=== PATIENT | male | born 1950 | race Caucasian/White ===

== ENCOUNTER 2021-02-17 14:05 | Outpatient (CLI) | payer OTHER, SELFPAY | END 2021-02-17 14:06 | disposition home or self-care (01) | LOC: WOUND 14:09 | PROVIDERS: Visit Provider Thoracic Surgery (Cardiothoracic Vascular Surgery) | DX: E11.621 Type 2 diabetes mellitus with foot ulcer (principal); L97.523 Non-pressure chronic ulcer of other part of left foot with necrosis of muscle | CPT/HCPCS: 11043; 87070; 87075; 87205; G0463 ==

== ENCOUNTER 2021-02-17 15:28 | Outpatient (CLI) | payer OTHER, MEDICARE, MEDICAID, SELFPAY ==
--- NOTE | 2021-02-17 | USCV_ITS ---
Keny Armendariz Age: 71 Gender: M : 1950 Exam Date: 02/17/2021 15:54 Ordering Phys: Brian Ayala MD (Andy) ([email or web address] [email or web address]) Technologist: Violette Mccarty [place] [facility] [place]OT ULCER, DVT HISTORY: Lower extremity swelling. PROCEDURES: Venous duplex imaging was performed in only the left lower extremity. The following venous structures were evaluated: common femoral vein, profunda vein, proximal portion of the greater saphenous vein, superficial femoral vein, and the popliteal vein. In addition, the posterior tibial and peroneal trunk were evaluated. FINDINGS: Normal 2-D Doppler and augmentation and compressibility throughout the lower extremity venous structures. Additional imaging through the proximal calf veins also reveals no thrombus. Limited evaluation of the greater saphenous vein is patent with no thrombus.. CONCLUSIONS No evidence of left lower extremity DVT. Everardo Macias MD (Electronically Signed) Final Date: 17 Feb 2021 17:51 S
== END 2021-02-17 15:29 | disposition home or self-care (01) ==
PROVIDERS: PCP Family Medicine; Visit Provider Thoracic Surgery (Cardiothoracic Vascular Surgery)
DX: E11.621 Type 2 diabetes mellitus with foot ulcer (principal)
CPT/HCPCS: 93971

== ENCOUNTER 2021-02-24 14:09 | Outpatient (CLI) | payer OTHER, MEDICARE, MEDICAID, SELFPAY | END 2021-02-24 14:10 | disposition home or self-care (01) | LOC: WOUND 14:10 | PROVIDERS: PCP Family Medicine; Visit Provider Thoracic Surgery (Cardiothoracic Vascular Surgery) | DX: E11.621 Type 2 diabetes mellitus with foot ulcer (principal); L97.525 Non-pressure chronic ulcer of other part of left foot with muscle involvement without evidence of necrosis | CPT/HCPCS: 11042 ==

== ENCOUNTER 2021-03-01 08:37 | Outpatient (CLI) | payer OTHER, MEDICARE, SELFPAY ==
--- NOTE | 2021-03-01 08:45 | MR_ITS ---
WS: [id number] MRI LEFT FOOT with and without CONTRAST. COMPARISON: LEFT toe 02/17/2016 Multiplanar, multisequence imaging is performed with and without contrast. Status post amputation of nearly 70% of the second toe. Mild tapering of the remaining proximal secon d phalanx. There is no enhancement at the surgical site. There is abnormal signal involving a large portion of the first toe. On the T1 sequences there is low signal at the IP joint and adjacent phalanges. There is narrowing of the IP joint and there is enhan cement on both sides of the first IP joint. There is also small amount of enhancement within the prox imal first phalanx. Focal soft tissue ulceration along the plantar surface of the first toe near the IP joint. Soft tissue ulceration with peripheral enhancement measures 10 x 11 mm and does abut the pl daja surface of the first toe. There is enhancement within the first toe just deep to the ulceration . There is very slight enhancement within the first metatarsal head which may be degenerative and due t o acute inflammatory reaction from arthropathy. MR/MR foot LT wo/w con [id number] IMPRESSION: 1. Soft tissue ulceration measuring 10 x 11 mm involving the plantar surface f irst toe at the IP joint. 2. Deep to the soft tissue ulceration there is osteomyelitis involving the pro ximal and distal phalanges at the first IP joint. 3. Mild enhancement within the first metatarsal head may be post inflammatory arthritis. 4. Mild cellulitis surrounding the first toe. 5. Prior amputation 70% of the second toe with no recurrent osteomyelitis.
[2021-03-01 09:28] LABS: Basophils % 0.4 %; Eosinophils # 0.2 10^3/uL (0.0-0.8); Eosinophils % 2.9 %; Hematocrit 45.5 % (42.0-52.0); Hemoglobin 14.8 g/dL (11.7-16.6); Lymphocytes # 1.6 10^3/uL (0.8-4.8); Lymphocytes % 19.6 %; Mean Corpuscular HGB Conc 32.5 g/dL (30.0-36.0); Mean Corpuscular Volume 86.2 fL (80-94); Mean Platelet Volume 9.9 fL (7.4-10.4); Monocytes # 0.6 10^3/uL (0.2-0.9); Monocytes % 7.7 %; Neutrophils # 5.66 10^3/uL (1.8-7.7); Neutrophils % 69.2 %; Nucleated Red Blood Cells % 0 %; Platelet Count 253 10^3/cmm (130-400); Red Blood Count 5.28 10^6/uL (4.1-5.3); Red Cell Distribution Width 12.1 % (12.1-15.1); White Blood Count 8.2 10^3/uL (4.0-10.0)
[2021-03-01 10:00] LABS: Anion Gap 15.1 (5-19); Blood Urea Nitrogen 15 mg/dL (8-23); Calcium 8.9 mg/dL (8.5-10.5); Carbon Dioxide 28 mmol/L (22-29); Chloride 97 mmol/L (98-107); Glucose 299 mg/dL (65-115); Osmolality Calculated 294 mOsm/kg (285-295); Potassium 4.1 mmol/L (3.5-5.1); Sodium 136 mmol/L (136-145)
[2021-03-01] MEDS: gadobenate dimeglumine 20 mL vial IV (10:17)
== END 2021-03-01 08:38 | disposition home or self-care (01) ==
PROVIDERS: PCP Family Medicine; Visit Provider Thoracic Surgery (Cardiothoracic Vascular Surgery)
DX: E11.621 Type 2 diabetes mellitus with foot ulcer (principal); L97.528 Non-pressure chronic ulcer of other part of left foot with other specified severity; M86.8X7 Other osteomyelitis, ankle and foot; L03.032 Cellulitis of left toe; Z89.422 Acquired absence of other left toe(s)
CPT/HCPCS: 73720; 80048; 85025; A9577

== ENCOUNTER 2021-03-03 14:39 | Outpatient (CLI) | payer OTHER, MEDICARE, SELFPAY | END 2021-03-03 14:40 | disposition home or self-care (01) | LOC: WOUND 14:40 | PROVIDERS: PCP Family Medicine; Visit Provider Thoracic Surgery (Cardiothoracic Vascular Surgery) | DX: E11.621 Type 2 diabetes mellitus with foot ulcer (principal); L97.523 Non-pressure chronic ulcer of other part of left foot with necrosis of muscle | CPT/HCPCS: 11043 ==

== ENCOUNTER 2021-03-09 08:50 | Outpatient (CLI) | payer OTHER, SELFPAY | END 2021-03-09 08:51 | disposition home or self-care (01) | LOC: SPT 08:51 | PROVIDERS: PCP Family Medicine; Visit Provider Podiatrist Foot & Ankle Surgery | DX: Z46.89 Encounter for fitting and adjustment of other specified devices (principal); E11.621 Type 2 diabetes mellitus with foot ulcer; L97.529 Non-pressure chronic ulcer of other part of left foot with unspecified severity | CPT/HCPCS: 97760; L4361 ==

== ENCOUNTER 2021-03-10 08:28 | Outpatient (CLI) | payer OTHER, SELFPAY ==
--- NOTE | 2021-03-10 11:06 | XR_ITS ---
WS: [id number] Exam: XR chest 2V* [id number] Date/Time of Exam: 03/10/2021 11:25 AM Reason For Exam: SCREENING FOR RESPIRATORY Comparison 06/20/2013. The lungs are hyperinflated and clear. Normal cardiomediastinal structures and regional bony elements . No pleural effusions. Spondylosis of the thoracic and upper lumbar spine. XR/XR chest 2V* [id number] IMPRESSION: 1. No acute cardiopulmonary finding. 2. Pulmonary hyperinflation which might indicate obstructive lung disease.
[2021-03-10 11:40] LABS: Basophils # 0.1 10^3/uL (0.0-0.1); Basophils % 0.7 %; Eosinophils # 0.4 10^3/uL (0.0-0.8); Eosinophils % 4.3 %; Hematocrit 44.9 % (42.0-52.0); Hemoglobin 14.8 g/dL (11.7-16.6); Lymphocytes # 2.2 10^3/uL (0.8-4.8); Lymphocytes % 25.3 %; Mean Corpuscular Hemoglobin 27.8 pg (28.0-34.0); Mean Corpuscular Volume 84.4 fL (80-94); Mean Platelet Volume 8.9 fL (7.4-10.4); Monocytes # 0.8 10^3/uL (0.2-0.9); Monocytes % 9.7 %; Neutrophils # 5.18 10^3/uL (1.8-7.7); Neutrophils % 59.5 %; Nucleated Red Blood Cells % 0 %; Platelet Count 211 10^3/cmm (130-400); Red Blood Count 5.32 10^6/uL (4.1-5.3); Red Cell Distribution Width 12.5 % (12.1-15.1); White Blood Count 8.7 10^3/uL (4.0-10.0)
[2021-03-10 11:55] LABS: Alanine Aminotransferase 16 U/L (0-41); Albumin Level 3.9 g/dL (3.5-5.2); Alkaline Phosphatase 117 IU/L (40-130); Anion Gap 14.1 (5-19); Aspartate Amino Transferase 13 U/L (0-40); Blood Urea Nitrogen 15 mg/dL (8-23); C Reactive Protein 8.1 mg/L (0.0-4.9); Calcium 9.3 mg/dL (8.5-10.5); Carbon Dioxide 26 mmol/L (22-29); Chloride 97 mmol/L (98-107); Globulin 3.6 g/dL (1.3-4.6); Glucose 212 mg/dL (65-115); Osmolality Calculated 283 mOsm/kg (285-295); Potassium 4.1 mmol/L (3.5-5.1); Sodium 133 mmol/L (136-145); Total Bilirubin 0.2 mg/dL (0.15-1.2); Total Protein 7.5 g/dL (6.6-8.7)
[2021-03-10 11:57] LABS: Prealbumin 20.8 mg/dL (20-40)
[2021-03-10 12:06] LABS: Alcohol Level < 10 mg/dL (0-10)
[2021-03-10 12:32] LABS: Erythrocyte Sedimentation Rate 44 mm/hr (0-10)
== END 2021-03-10 08:29 | disposition home or self-care (01) ==
PROVIDERS: PCP Family Medicine; Visit Provider Nurse Practitioner Family
DX: E11.621 Type 2 diabetes mellitus with foot ulcer (principal); L97.522 Non-pressure chronic ulcer of other part of left foot with fat layer exposed; Z13.83 Encounter for screening for respiratory disorder NEC
CPT/HCPCS: 11042; 36415; 71046; 80053; 80307; 84134; 85025; 85651; 86140

== ENCOUNTER 2021-03-10 10:55 | Outpatient (CLI) | payer OTHER, SELFPAY ==
--- NOTE | 2021-03-10 11:13 | ECG_ITS ---
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 Measurements Intervals Colbert Rate: 93 P: 75 AZ: 170 QRS: 20 QRSD: 93 T: 57 QT: 341 QTc: 425 Interpretive Statements SINUS RHYTHM No previous ECG available for comparison Electronically Signed On 03-10-2021 18:33:18 CDT by Yanelis Pandey M.D. [id number]
== END 2021-03-10 10:56 | disposition home or self-care (01) ==
LOC: RT 11:00
PROVIDERS: PCP Family Medicine
DX: Z13.6 Encounter for screening for cardiovascular disorders (principal)
CPT/HCPCS: 93005

== ENCOUNTER 2021-03-21 13:04 | Outpatient (CLI) | payer OTHER, SELFPAY | END 2021-03-21 13:05 | disposition home or self-care (01) | LOC: WOUND 13:05 | PROVIDERS: PCP Family Medicine; Visit Provider Thoracic Surgery (Cardiothoracic Vascular Surgery) | DX: E11.621 Type 2 diabetes mellitus with foot ulcer (principal); L97.522 Non-pressure chronic ulcer of other part of left foot with fat layer exposed; M86.9 Osteomyelitis, unspecified | CPT/HCPCS: 11043; G0277 ==

== ENCOUNTER 2021-03-22 13:07 | Outpatient (CLI) | payer OTHER, SELFPAY | END 2021-03-22 13:08 | disposition home or self-care (01) | LOC: WOUND 13:08 | PROVIDERS: PCP Family Medicine; Visit Provider Thoracic Surgery (Cardiothoracic Vascular Surgery) | DX: M86.672 Other chronic osteomyelitis, left ankle and foot (principal) | CPT/HCPCS: 99212 ==

== ENCOUNTER 2021-03-25 06:00 | Day surgery (SDC) | payer OTHER, SELFPAY ==
[2021-03-25 06:12] VITALS: BP 142/76; PULSE 69; RESP 18; TEMP 36.6; O2SAT 96
[2021-03-25 06:13] VITALS: BMI 30.4
[2021-03-25] MEDS: sodium chloride 0.9% 1,000 ML 30 ML IV (06:29)
--- NOTE | 2021-03-25 06:30 | P.OP_ITS ---
Operative Report Date of procedure: March 25, 2021 Pre-op Diagnosis: Osteomyelitis left great toe Procedure Done: Left hallux interphalangeal joint arthroplasty with insertion of antibiotic impregnated cement spacer. CPT code 98527 and 60507 Implants: 4-0 Vicryl 4-0 nylon cement spacer made of Simplex P with tobramycin Specimens removed/disposition: Proximal phalanx left hallux sent to microbiology for Gram stain and culture. Pathology: none sent Surgeon: Cullen Mckeon D.P.M. Manager Product Design: Shalom Anesthesia: MAC Estimated blood loss: 5 Tourniquet time: see intraoperative documentation IV fluids: None Urine output: None Complications: None Condition: stable Disposition: PACU Brief History: Osteomyelitis confirmed on MRI with wound at the plantar hallux interphalangeal joint extending to bone has been on antibiotic therapies, serial debridement, offloading and wound care modalities with failure to progress. Recommending biopsy of bone, resection of hallux interphalangeal joint arthrosis and insertion of antibiotic impregnated cement spacer. Risks include pain, bleeding, numbness, infection, failure to eradicate infection, progression of osteomyelitis and soft tissue infection need for higher level of surgical debridement and possible amputation, loss of limb loss of life. Altered mechanics, surgical site dehiscence and need for retrieval/removal of antibiotic spacer. Patient has been n.p.o. since midnight, informed consent signed by myself and patient I initialed his left foot. All questions answered to patient satisfaction wishes to proceed no guarantees written, expressed or implied. Procedure: Under mild sedation the patient was brought to the operating room and placed on the operating table in supine position. A timeout was performed. Anesthesia was then administered by the anesthesia service. Local anesthesia injected by myself consisting of 30 cc of one-to-one mixture 1% lidocaine 0.5% Marcaine plain and a left Joyce block fashion. Well-padded pneumatic tourniquet applied to the left ankle. Left lower extremity was scrubbed, prepped and draped utilizing normal aseptic technique. Tourniquet was then inflated to 250 mmHg. Attention was directed to the medial aspect of the hallux interphalangeal joint where a linear longitudinal incision was made full-thickness down to bone, utilizing an sagittal saw the head of the proximal phalanx of the left hallux was transected at the metaphyseal diaphyseal juncture as well as the base of the distal phalanx, bone was off-color and a poor density at this region resection margins were clean and of appropriate density. Incision was flushed with saline solution followed by placement of Simplex P with tobramycin. Incision was further irrigated and closed utilizing 4-0 Vicryl subcutaneous tissue and 4-0 nylon at skin. This was then dressed utilizing Adaptic, 4 x 4, Kerlix Brian wrap and patient will continue with cam boot. Tourniquet was deflated and a prompt hyperemic response was noted in the distal digits of the left foot. Patient tolerated the procedure and anesthesia well and was transferred to the PACU with vital signs stable and vascular status intact. Following a period of postoperative monitoring will be discharged home may be limited weightbearing protected with a cam boot he is to elevate his left foot while at rest to continue oral linezolid previously prescribed twice daily. Will follow-up next week in podiatry clinic.
--- NOTE | 2021-03-25 06:30 | W.PM.OPSUD ---
Surgery/Procedure H&P Update DATE OF PROCEDURE: March 25, 2021 DATE H&P PERFORMED: 03/09/21 H&P UPDATE INFORMATION: I have reviewed H&P completed within last 30 days, I have examined patient prior to procedure, No changes to prior documentation and [place] is [place] [facility] [place] PREOP DIAGNOSIS: Osteomyelitis left great toe PLANNED PROCEDURE: Operation Date: 03/25/21 07:00 Proposed Procedures p [id number] L97.524Left hallux interphalangeal joint arthroplasty with insertion of antibotic impregnated cement spacer(Left) - Cullen Mckeon DPM s Possible debridement of left first metatarsophalangeal joint(Left) - Cullen Mckeon DPM
[2021-03-25 06:36] LABS: Glucose Point of Care 226 mg/dL (70-110)
--- NOTE | 2021-03-25 06:36 | ANES.PREANE2 ---
Pre-Anesthetic Assessment Pre-Anesthetic Assessment: Height/Weight: Height 1.73 m Weight 90.718 kg Temp Pulse Resp BP Pulse Ox 97.8 F 69 18 142/76 96 03/25/21 06:12 03/25/21 06:12 03/25/21 06:12 03/25/21 06:12 03/25/21 06:12 Preop Diagnosis: Osteomyelitis left great toe Proposed Procedure: Operation Date: 03/25/21 07:00 Proposed Procedures p 36812 [id number] L97.524Left hallux interphalangeal joint arthroplasty with insertion of antibotic impregnated cement spacer(Left) - Cullen Mckeon DPM s Possible debridement of left first metatarsophalangeal joint(Left) - Cullen Mckeon DPM Familial anesthetic complications: None Was Beta Lane taken within 24 hours: N/A Was Clonidine taken within 24 hours: N/A Last intake: > 8 hrs Social: Social History: Tobacco and No alcohol Exam: Pre-Anes Outpt Exam: alert, oriented x 3, clear to auscultation bilaterally and regular rate & rhythm Airway: Cervical ROM: WNL MP: 2 Dentition: Other (multiple missing discolored teeth, chipped, poor dentition) CV/HEM: CV/HEM: DVT (rivaroxaban (2012)) and HTN Metabolic: Metabolic: DM and Hyperlipidemia Anesthetic Plan: ASA status: 3 Anesthesia: MAC Risk of > 500 ml blood loss (7ml/kg in children): No Meds/Allergies Current Medications: Current Medications Generic Name Dose Route Start Last Admin Trade Name Freq PRN Reason Stop Dose Admin Sodium Chloride 1,000 mls @ 30 ml s/hr 03/25/21 06:15 03/25/21 06:29 Sodium Chloride 0.9% IV 03/26/21 06:14 30 mls/hr .Q24H HIRA Administration PFSH Anesthesia PFSH: Social History Smoking and tobacco status: current every day smoker cigarettes Packs smoked per day: 1 Years cigarettes smoked: 20 Second hand smoke exposure: Yes Smoking risk assessment/counseling performed?: No Alcohol intake: never Desire information about alcohol rehabilitation?: No Counseling given: No Data Anesthesia Cardiac Studies: No Data to Display
[2021-03-25] MEDS: lidocaine 1% INJ 20 mL 15 ML INJECTION (07:26)
[2021-03-25 07:46] VITALS: BP 123/69; PULSE 59; RESP 12; TEMP 36.5; O2SAT 95
--- NOTE | 2021-03-25 07:49 | XR_ITS ---
WS: [id number] Left foot, 3 views, 03/25/2021 Clinical Data: post op Comparison: Left great toe, 02/17/2016. Findings: There is partial amputation of the left second toe with only the proximal half of the proximal phalan x remaining. There is sclerosis of the distal portion of the left first proximal phalanx along with a horizontal line which could be a fracture or a surgical incision. No sequestrum of the left great to e is seen. There is soft tissue indentation on the lateral aspect of the distal phalanx of the great toe. There are calcifications adjacent to the lateral aspect of the distal portion of the left first metat arsal. There is a large plantar spur and an Achilles spur. XR/XR foot LT min 3V* [id number] Impression: 1. Partial amputation of left second toe unchanged. 2. Sclerosis of the distal portion of the left first proximal phalanx of the fo ot. No sequestrum of osteomyelitis is seen.
[2021-03-25 07:50] VITALS: BP 123/63; PULSE 51; RESP 14; TEMP 36.5; O2SAT 98
[2021-03-25 07:56] VITALS: BP 115/58; PULSE 52; RESP 18; TEMP 36.1; O2SAT 96
[2021-03-25 08:21] VITALS: BP 152/71; PULSE 51; RESP 18; O2SAT 99
== END 2021-03-25 08:30 | disposition home or self-care (01) ==
PROVIDERS: PCP Family Medicine; Visit Provider Podiatrist Foot & Ankle Surgery
PROC: (CPT 11981; principal; 2021-03-25 07:00)
PROC: (CPT 11981; 2021-03-25 07:00)
DX: M86.8X7 Other osteomyelitis, ankle and foot (principal); Z86.718 Personal history of other venous thrombosis and embolism; I10 Essential (primary) hypertension; E11.9 Type 2 diabetes mellitus without complications; E78.5 Hyperlipidemia, unspecified; F17.210 Nicotine dependence, cigarettes, uncomplicated; E11.621 Type 2 diabetes mellitus with foot ulcer
CPT/HCPCS: 11981; 28124; 36416; 73630; 82962; 87070; 87077; 87176; 87186; 87205; 96365; J0690; J2704; J3490; J7030

== ENCOUNTER 2021-04-06 13:24 | Outpatient (CLI) | payer OTHER, SELFPAY | END 2021-04-06 13:25 | disposition home or self-care (01) | LOC: WOUND 13:25 | PROVIDERS: PCP Family Medicine; Visit Provider Thoracic Surgery (Cardiothoracic Vascular Surgery) | DX: M86.672 Other chronic osteomyelitis, left ankle and foot (principal) | CPT/HCPCS: G0277 ==

== ENCOUNTER 2021-04-07 07:49 | Outpatient (CLI) | payer OTHER, SELFPAY ==
--- NOTE | 2021-04-07 15:23 | XR_ITS ---
WS: [id number] Left foot, 3 views, 04/07/2021 Clinical Data: pain Comparison: Left foot, 03/25/2021. Findings: The partial amputation of the left second toe is noted. The patient has had a surgical procedure with amputation of the distal portion of the left great toe proximal phalanx and insertion of artificial material into the base of the left great toe distal phalanx. There is calcification adjacent to the distal lateral aspect of the left first metatarsal. There is a large plantar spur and Achilles spur. XR/XR foot LT min 3V* [id number] Impression: No change from previous left foot x-ray.
== END 2021-04-07 07:50 | disposition home or self-care (01) ==
LOC: WOUND 07:50
PROVIDERS: PCP Family Medicine; Visit Provider Nurse Practitioner Family
DX: E11.42 Type 2 diabetes mellitus with diabetic polyneuropathy (principal); M86.672 Other chronic osteomyelitis, left ankle and foot; L97.524 Non-pressure chronic ulcer of other part of left foot with necrosis of bone
CPT/HCPCS: 73630; G0277

== ENCOUNTER 2021-04-08 13:06 | Outpatient (CLI) | payer OTHER, SELFPAY | END 2021-04-08 13:07 | disposition home or self-care (01) | LOC: WOUND 13:07 | PROVIDERS: PCP Family Medicine; Visit Provider Surgery | DX: M86.672 Other chronic osteomyelitis, left ankle and foot (principal) | CPT/HCPCS: G0277 ==

== ENCOUNTER 2021-04-11 13:11 | Outpatient (CLI) | payer OTHER, SELFPAY | END 2021-04-11 13:12 | disposition home or self-care (01) | LOC: WOUND 13:12 | PROVIDERS: PCP Family Medicine; Visit Provider Nurse Practitioner Family | DX: M86.672 Other chronic osteomyelitis, left ankle and foot (principal); R97.20 Elevated prostate specific antigen [PSA] | CPT/HCPCS: 81003; 84153; G0277 ==

== ENCOUNTER 2021-04-13 13:11 | Outpatient (CLI) | payer OTHER, SELFPAY | END 2021-04-13 13:12 | disposition home or self-care (01) | LOC: WOUND 13:11 | PROVIDERS: PCP Family Medicine; Visit Provider Nurse Practitioner Family | DX: M86.672 Other chronic osteomyelitis, left ankle and foot (principal) | CPT/HCPCS: G0277 ==

== ENCOUNTER 2021-04-14 13:08 | Outpatient (CLI) | payer OTHER, SELFPAY | END 2021-04-14 13:09 | disposition home or self-care (01) | LOC: WOUND 13:09 | PROVIDERS: PCP Family Medicine; Visit Provider Thoracic Surgery (Cardiothoracic Vascular Surgery) | DX: M86.672 Other chronic osteomyelitis, left ankle and foot (principal) | CPT/HCPCS: G0277 ==

== ENCOUNTER 2021-04-15 13:03 | Outpatient (CLI) | payer OTHER, SELFPAY | END 2021-04-15 13:04 | disposition home or self-care (01) | LOC: WOUND 13:04 | PROVIDERS: PCP Family Medicine; Visit Provider Nurse Practitioner Family | DX: M86.672 Other chronic osteomyelitis, left ankle and foot (principal) | CPT/HCPCS: G0277 ==

== ENCOUNTER 2021-04-19 13:10 | Outpatient (CLI) | payer OTHER, SELFPAY | END 2021-04-19 13:11 | disposition home or self-care (01) | LOC: WOUND 13:11 | PROVIDERS: PCP Family Medicine; Visit Provider Thoracic Surgery (Cardiothoracic Vascular Surgery) | DX: M86.672 Other chronic osteomyelitis, left ankle and foot (principal) | CPT/HCPCS: G0277 ==

== ENCOUNTER 2021-04-21 13:05 | Outpatient (CLI) | payer OTHER, SELFPAY | END 2021-04-21 13:06 | disposition home or self-care (01) | LOC: WOUND 13:07 | PROVIDERS: PCP Family Medicine; Visit Provider Thoracic Surgery (Cardiothoracic Vascular Surgery) | DX: M86.672 Other chronic osteomyelitis, left ankle and foot (principal) | CPT/HCPCS: G0277 ==

== ENCOUNTER 2021-04-22 12:53 | Outpatient (CLI) | payer OTHER, SELFPAY | END 2021-04-22 12:54 | disposition home or self-care (01) | LOC: WOUND 12:53 | PROVIDERS: PCP Family Medicine; Visit Provider Thoracic Surgery (Cardiothoracic Vascular Surgery) | DX: M86.672 Other chronic osteomyelitis, left ankle and foot (principal) | CPT/HCPCS: G0277 ==

== ENCOUNTER → 2021-04-27 09:44 | Outpatient (BNVA) | payer OTHER, SELFPAY | PROVIDERS: PCP Family Medicine; Visit Provider Podiatrist Foot & Ankle Surgery | DX: L97.524 Non-pressure chronic ulcer of other part of left foot with necrosis of bone (principal); E11.42 Type 2 diabetes mellitus with diabetic polyneuropathy | CPT/HCPCS: 73630 ==

== ENCOUNTER 2021-05-02 07:47 | Outpatient (CLI) | payer OTHER, SELFPAY | END 2021-05-02 07:48 | disposition home or self-care (01) | LOC: WOUND 07:48 | PROVIDERS: PCP Family Medicine; Visit Provider Nurse Practitioner Family | DX: M86.672 Other chronic osteomyelitis, left ankle and foot (principal) | CPT/HCPCS: G0277 ==

== ENCOUNTER 2021-05-03 07:46 | Outpatient (CLI) | payer OTHER, SELFPAY | END 2021-05-03 07:47 | disposition home or self-care (01) | LOC: WOUND 07:46 | PROVIDERS: PCP Family Medicine; Visit Provider Thoracic Surgery (Cardiothoracic Vascular Surgery) | DX: M86.672 Other chronic osteomyelitis, left ankle and foot (principal) | CPT/HCPCS: G0277 ==

== ENCOUNTER 2021-05-04 07:47 | Outpatient (CLI) | payer OTHER, SELFPAY | END 2021-05-04 07:48 | disposition home or self-care (01) | LOC: WOUND 07:48 | PROVIDERS: PCP Family Medicine; Visit Provider Thoracic Surgery (Cardiothoracic Vascular Surgery) | DX: M86.672 Other chronic osteomyelitis, left ankle and foot (principal) | CPT/HCPCS: G0277 ==

== ENCOUNTER 2021-05-05 07:57 | Outpatient (CLI) | payer OTHER, SELFPAY | END 2021-05-05 07:58 | disposition home or self-care (01) | LOC: WOUND 07:57 | PROVIDERS: PCP Family Medicine; Visit Provider Nurse Practitioner Family | DX: M86.672 Other chronic osteomyelitis, left ankle and foot (principal) | CPT/HCPCS: G0277 ==

== ENCOUNTER 2021-05-06 07:46 | Outpatient (CLI) | payer OTHER, SELFPAY | END 2021-05-06 07:47 | disposition home or self-care (01) | LOC: WOUND 07:46 | PROVIDERS: PCP Family Medicine; Visit Provider Surgery | DX: M86.672 Other chronic osteomyelitis, left ankle and foot (principal) | CPT/HCPCS: G0277 ==

== ENCOUNTER 2021-05-09 07:43 | Outpatient (CLI) | payer OTHER, SELFPAY | END 2021-05-09 07:44 | disposition home or self-care (01) | LOC: WOUND 07:44 | PROVIDERS: PCP Family Medicine; Visit Provider Nurse Practitioner Family | DX: M86.672 Other chronic osteomyelitis, left ankle and foot (principal) | CPT/HCPCS: G0277 ==

== ENCOUNTER 2021-05-10 08:08 | Outpatient (CLI) | payer OTHER, SELFPAY | END 2021-05-10 08:09 | disposition home or self-care (01) | LOC: WOUND 08:09 | PROVIDERS: PCP Family Medicine; Visit Provider Nurse Practitioner Family | DX: M86.672 Other chronic osteomyelitis, left ankle and foot (principal) | CPT/HCPCS: G0277 ==

== ENCOUNTER 2021-05-11 08:07 | Outpatient (CLI) | payer OTHER, SELFPAY | END 2021-05-11 08:08 | disposition home or self-care (01) | LOC: WOUND 08:08 | PROVIDERS: PCP Family Medicine; Visit Provider Nurse Practitioner Family | DX: M86.672 Other chronic osteomyelitis, left ankle and foot (principal) | CPT/HCPCS: G0277 ==

== ENCOUNTER 2021-05-13 07:58 | Outpatient (CLI) | payer OTHER, SELFPAY | END 2021-05-13 07:59 | disposition home or self-care (01) | LOC: WOUND 07:58 | PROVIDERS: PCP Family Medicine; Visit Provider Surgery | DX: M86.672 Other chronic osteomyelitis, left ankle and foot (principal) | CPT/HCPCS: G0277 ==

== ENCOUNTER 2021-05-17 07:50 | Outpatient (CLI) | payer OTHER, SELFPAY | END 2021-05-17 07:51 | disposition home or self-care (01) | LOC: WOUND 07:50 | PROVIDERS: PCP Family Medicine; Visit Provider Thoracic Surgery (Cardiothoracic Vascular Surgery) | DX: M86.672 Other chronic osteomyelitis, left ankle and foot (principal) | CPT/HCPCS: G0277 ==

== ENCOUNTER 2021-05-18 07:47 | Outpatient (CLI) | payer OTHER, SELFPAY | END 2021-05-18 07:48 | disposition home or self-care (01) | LOC: WOUND 07:48 | PROVIDERS: PCP Family Medicine; Visit Provider Thoracic Surgery (Cardiothoracic Vascular Surgery) | DX: M86.672 Other chronic osteomyelitis, left ankle and foot (principal) | CPT/HCPCS: G0277 ==

== ENCOUNTER 2021-05-19 08:01 | Outpatient (CLI) | payer OTHER, SELFPAY | END 2021-05-19 08:02 | disposition home or self-care (01) | LOC: WOUND 08:02 | PROVIDERS: PCP Family Medicine; Visit Provider Nurse Practitioner Family | DX: M86.672 Other chronic osteomyelitis, left ankle and foot (principal) | CPT/HCPCS: 82962; G0277 ==

== ENCOUNTER 2021-05-20 07:50 | Outpatient (CLI) | payer OTHER, SELFPAY | END 2021-05-20 07:51 | disposition home or self-care (01) | LOC: WOUND 07:50 | PROVIDERS: PCP Family Medicine; Visit Provider Surgery | DX: M86.672 Other chronic osteomyelitis, left ankle and foot (principal) | CPT/HCPCS: G0277 ==

== ENCOUNTER 2021-05-23 07:52 | Outpatient (CLI) | payer OTHER, SELFPAY | END 2021-05-23 07:53 | disposition home or self-care (01) | LOC: WOUND 07:53 | PROVIDERS: PCP Family Medicine; Visit Provider Emergency Medicine | DX: M86.672 Other chronic osteomyelitis, left ankle and foot (principal) | CPT/HCPCS: G0277 ==

== ENCOUNTER 2021-05-24 07:49 | Outpatient (CLI) | payer OTHER, SELFPAY | END 2021-05-24 07:50 | disposition home or self-care (01) | LOC: WOUND 07:50 | PROVIDERS: PCP Family Medicine; Visit Provider Emergency Medicine | DX: M86.672 Other chronic osteomyelitis, left ankle and foot (principal) | CPT/HCPCS: 82962; G0277 ==

== ENCOUNTER 2021-05-25 07:44 | Outpatient (CLI) | payer OTHER, SELFPAY | END 2021-05-25 07:45 | disposition home or self-care (01) | LOC: WOUND 07:46 | PROVIDERS: PCP Family Medicine; Visit Provider Thoracic Surgery (Cardiothoracic Vascular Surgery) | DX: M86.672 Other chronic osteomyelitis, left ankle and foot (principal) | CPT/HCPCS: 82962; G0277 ==

== ENCOUNTER 2021-05-26 07:51 | Outpatient (CLI) | payer OTHER, SELFPAY | END 2021-05-26 07:52 | disposition home or self-care (01) | LOC: WOUND 07:54 | PROVIDERS: PCP Family Medicine; Visit Provider Nurse Practitioner Family | DX: M86.672 Other chronic osteomyelitis, left ankle and foot (principal) | CPT/HCPCS: 82962; G0277 ==

== ENCOUNTER 2021-05-27 07:47 | Outpatient (CLI) | payer OTHER, SELFPAY | END 2021-05-27 07:48 | disposition home or self-care (01) | LOC: WOUND 07:48 | PROVIDERS: PCP Family Medicine; Visit Provider Surgery | DX: M86.672 Other chronic osteomyelitis, left ankle and foot (principal) | CPT/HCPCS: 82962; G0277 ==

== ENCOUNTER 2021-05-30 07:53 | Outpatient (CLI) | payer OTHER, SELFPAY | END 2021-05-30 07:54 | disposition home or self-care (01) | LOC: WOUND 07:54 | PROVIDERS: PCP Family Medicine; Visit Provider Emergency Medicine | DX: M86.672 Other chronic osteomyelitis, left ankle and foot (principal) | CPT/HCPCS: 82962; G0277 ==

== ENCOUNTER 2021-05-31 07:49 | Outpatient (CLI) | payer OTHER, SELFPAY | END 2021-05-31 07:50 | disposition home or self-care (01) | LOC: WOUND 07:49 | PROVIDERS: PCP Family Medicine; Visit Provider Thoracic Surgery (Cardiothoracic Vascular Surgery) | DX: M86.672 Other chronic osteomyelitis, left ankle and foot (principal) | CPT/HCPCS: G0277 ==

== ENCOUNTER 2021-06-01 07:48 | Outpatient (CLI) | payer OTHER, SELFPAY | END 2021-06-01 07:49 | disposition home or self-care (01) | LOC: WOUND 07:49 | PROVIDERS: PCP Family Medicine; Visit Provider Thoracic Surgery (Cardiothoracic Vascular Surgery) | DX: M86.672 Other chronic osteomyelitis, left ankle and foot (principal) | CPT/HCPCS: 82962; G0277 ==

== ENCOUNTER 2021-06-02 07:49 | Outpatient (CLI) | payer OTHER, SELFPAY | END 2021-06-02 07:50 | disposition home or self-care (01) | PROVIDERS: PCP Family Medicine; Visit Provider Nurse Practitioner Family | DX: M86.672 Other chronic osteomyelitis, left ankle and foot (principal) | CPT/HCPCS: 82962; G0277 ==

== ENCOUNTER 2021-06-03 07:50 | Outpatient (RCR) | payer OTHER, SELFPAY | END 2021-06-14 23:59 | disposition home or self-care (01) | LOC: WOUND 07:50 | PROVIDERS: PCP Family Medicine; Visit Provider Surgery | DX: M86.672 Other chronic osteomyelitis, left ankle and foot (principal) | CPT/HCPCS: G0277 ==

== ENCOUNTER 2021-06-06 07:53 | Outpatient (CLI) | payer OTHER, SELFPAY | END 2021-06-06 07:54 | disposition home or self-care (01) | LOC: WOUND 07:54 | PROVIDERS: PCP Family Medicine; Visit Provider Emergency Medicine | DX: M86.672 Other chronic osteomyelitis, left ankle and foot (principal) | CPT/HCPCS: 82962; G0277 ==

== ENCOUNTER 2021-06-07 07:52 | Outpatient (CLI) | payer OTHER, SELFPAY | END 2021-06-07 07:53 | disposition home or self-care (01) | PROVIDERS: PCP Family Medicine; Visit Provider Nurse Practitioner Family | DX: M86.672 Other chronic osteomyelitis, left ankle and foot (principal) | CPT/HCPCS: 82962; G0277 ==

== ENCOUNTER → 2022-03-27 11:30 | Outpatient (BNVA) | payer OTHER, SELFPAY | PROVIDERS: PCP Family Medicine; Visit Provider Internal Medicine Cardiovascular Disease | DX: I71.4 Abdominal aortic aneurysm, without rupture (principal); I10 Essential (primary) hypertension; I26.99 Other pulmonary embolism without acute cor pulmonale; E78.2 Mixed hyperlipidemia; E11.42 Type 2 diabetes mellitus with diabetic polyneuropathy; I27.20 Pulmonary hypertension, unspecified; F17.210 Nicotine dependence, cigarettes, uncomplicated; Z79.01 Long term (current) use of anticoagulants; Z79.84 Long term (current) use of oral hypoglycemic drugs | CPT/HCPCS: 99214 ==

== ENCOUNTER 2022-04-19 07:15 | Outpatient (CLI) | payer OTHER, SELFPAY ==
--- NOTE | 2022-04-19 08:00 | USCV_ITS ---
Keny Armenadriz Age: 72 Gender: M : 1950 Exam Date: 04/19/2022 07:31 Ordering Phys: Brian Velazquez MD ([email or web address]/[facility]) Technologist: ZAHIDA Exam Location[place] [facility] [place] Indication: SCREENING, EVAL FOR AAA HISTORY: Diameter (cm) AP x Transverse x Length Velocity (cm/s) Waveform Prox Aorta: 2.52 x 2.54 x 85.90 Mid Aorta: 1.78 x 2.12 x 85.90 Distal Aorta: 1.65 x 1.97 x 89.20 Right Iliac Prox: 0.97 x 0.93 x 100.80 Left Iliac Prox: 0.96 x 0.95 x 126.40 Stent Prox Landing x x Aneurysmal Sac Max x x Lt Lat Sac Dim Rt Lat Sac Dim Stent Dist Landing x x Right Iliac Stent x x Left Iliac Stent x x Right Renal Art Left Renal Art FINDINGS: Normal abdominal aortic dimensions. Normally, iliac artery dimensions. Normal Doppler velocities in the aorta and in the common iliac arteries CONCLUSIONS 1. No evidence of any abdominal aortic aneurysm 2. Normal proximal common iliac artery dimensions with no evidence of stenosis. Dr Brian Velazquez MD [facility] (Electronically Signed) Final Date: 20 April 2022 08:05 S
--- NOTE | 2022-04-19 08:30 | USCV_ITS ---
Keny Armendariz Age: 72 Gender: M : 1950 Exam Date: 04/19/2022 07:41 Ordering Phys: Brian Velazquez MD ([email or web address]) Technologist: ZAHIDA Exam Location: [facility] [place] Indication: SHORTNESS OF BREATH/PULMONARY HYPERTENSION BP: 128 / 68 HR: 64 Rhythm: Sinus Technical Quality: Adequate MEASUREMENTS (Male / Female) Normal Values 2D ECHO LV Diastolic Diameter PLAX 5.0 cm 4.2 - 5.9 / 3.9 - 5.3 cm LV Systolic Diameter PLAX 3.2 cm IVS Diastolic Thickness 1.9 cm 0.6 - 1.0 / 0.6 - 0.9 cm IVS Systolic Thickness 2.6 cm LVPW Diastolic Thickness 1.2 cm 0.6 - 1.0 / 0.6 - 0.9 cm LVPW Systolic Thickness 1.7 cm LVOT Diameter 2.0 cm LV Ejection Fraction 2D Teich 65.1 % LV Ejection Fraction MOD 2C 68.0 % LV Ejection Fraction 2C AL 73.0 % LA Diameter 2.9 cm LA Width 2.8 cm LA Height 5.1 cm RA Width 4.0 cm RA Height 4.7 cm Aorta at Sinotubular Diameter 2.4 cm IVC Diameter 1.7 cm M-MODE Aortic Annulus Diameter 3.5 cm LA Ao Ratio MM 0.8 MV E Point Septal Separation 0.3 cm DOPPLER AV Peak Velocity 143.3 cm/s LVOT Peak Velocity 98.0 cm/s AV Area Cont Eq vti 2.3 cm squared AV Area Cont Eq pk 2.2 cm squared MV Peak Velocity 92.0 cm/s MV Area PHT 3.5 cm squared Mitral E to A Ratio 0.9 MV E' Velocity 47.0 cm/s Mitral E to MV E' Ratio 7.1 Mitral E to LV E' Lateral Ratio 6.3 Mitral E to LV E' Septal Ratio 8.2 TR Peak Velocity 259.9 cm/s TR Peak Gradient 27.0 mmHg TR Mean Velocity 186.4 cm/s TR Mean Gradient 15.2 mmHg TR Velocity Time Integral 71.5 cm TV Peak E Velocity 51.0 cm/s Right Atrial Pressure 3.0 mmHg Pulmonary Artery Systolic Pressu 30.0 mmHg PV Peak Velocity 94.0 cm/s RV Acceleration Time 0.2 s RV Ejection Time 0.3 s RV AcT/ET 0.5 FINDINGS Left Ventricle Normal left ventricular size and systolic function, EF 67 %. No regional wall motion abnormalities. Right Ventricle The right ventricle is normal in size and function. Right Atrium The right atrium is normal in size. Left Atrium The left atrium is normal in size. Mitral Valve No gross abnormalities noted Aortic Valve No gross abnormalities noted Tricuspid Valve Trace tricuspid valve regurgitation. Pulmonic Valve Structurally normal pulmonic valve without significant stenosis. There is no pulmonic regurgitation. Pericardium No gross abnormalities noted Aorta Normal ascending aorta dimension. IVC Normal inferior vena cava. CONCLUSIONS Normal left ventricular size and systolic function, EF 67 %. No regional wall motion abnormalities. Normal cardiac chamber sizes. No significant stenotic or regurgitant lesions There is no pericardial effusion. There are no intracardiac masses. No previous study is available for comparison. Dr Brian Velazquez MD [facility] (Electronically Signed) Final Date: 20 April 2022 07:56 S
== END 2022-04-19 07:16 | disposition home or self-care (01) ==
PROVIDERS: PCP Family Medicine; Visit Provider Internal Medicine Cardiovascular Disease
DX: I71.4 Abdominal aortic aneurysm, without rupture (principal); R06.00 Dyspnea, unspecified; R06.02 Shortness of breath
CPT/HCPCS: 93306; 93978

== ENCOUNTER → 2022-06-27 09:30 | Outpatient (BNVA) | payer OTHER, SELFPAY | PROVIDERS: PCP Family Medicine; Visit Provider Surgery | DX: Z12.11 Encounter for screening for malignant neoplasm of colon (principal) | CPT/HCPCS: 99203 ==

== ENCOUNTER 2022-07-07 08:27 | Day surgery (SDC) | payer OTHER, SELFPAY ==
[2022-07-05 10:19] VITALS: BMI 29.7
[2022-07-07 08:50] VITALS: BP 170/75; PULSE 84; RESP 18; TEMP 36.2; O2SAT 97
[2022-07-07] MEDS: sodium chloride 0.9% 1,000 ML 30 ML IV (08:55)
--- NOTE | 2022-07-07 08:59 | ANES.PREANE2 ---
Pre-Anesthetic Assessment Height/Weight: Height 1.73 m Weight 88.904 kg Temp Pulse Resp BP Pulse Ox O2 Del Method 97.2 F L 84 18 170/75 97 07/07/22 08:50 07/07/22 08:50 07/07/22 08:50 07/07/22 08:50 07/07/22 08:50 07/07/22 08:50 Preop Diagnosis: Osteomyelitis left great toe Operation Date: 07/07/22 10:00 Proposed Procedures p Colonoscopy 86899,Z12.11(Not Applicable) - Guanakito Frias DO Familial anesthetic complications: None Was Beta Lane taken within 24 hours: N/A Was Clonidine taken within 24 hours: N/A Last intake: Intake Last Liquid Date 07/06/22 Last Liquid Time 23:55 Last Solid Date 07/05/22 Last Solid Time 18:30 Social No alcohol and No tobacco Exam alert, oriented x 3, clear to auscultation bilaterally and regular rate & rhythm Airway Mallampati: Class III Dentition: other (multiple missing, poor dentition) Pulmonary hx PE 6 years ago, on anticoagulation, holding for procedure CV/HEM Hypertension Metabolic Diabetes Mellitus Anesthetic Plan ASA status: 3 Risk of > 500 ml blood loss (7ml/kg in children): No Medications/Allergies Home Medications Medication Instructions Recorded Confirmed Last Taken Type glimepiride 1 mg tablet 1 mg PO DAILY 03/09/21 07/05/22 03/24/21 History hydrochlorothiazide 25 mg tablet 25 mg PO DAILY 03/09/21 07/05/22 03/24/21 History rivaroxaban 10 mg tablet 10 mg PO DAILY 03/09/21 07/05/22 03/24/21 History metformin 500 mg tablet 500 mg PO BID 04/11/21 07/05/22 Unknown History rosuvastatin 40 mg tablet 40 mg PO .1/2 tablet daily 04/11/21 07/05/22 Unknown History lisinopril 40 mg tablet 40 mg PO DAILY #90 tabs 09/26/21 07/05/22 Unknown Rx amlodipine 5 mg tablet 5 mg PO DAILY #90 tabs 10/31/21 07/05/22 Unknown Rx Allergies Allergy/AdvReac Type Severity Reaction Status Date / Time No Known Allergies Allergy Verified 06/27/22 09:38 Current Medications Generic Name Dose Route Start Last Admin Trade Name Freq PRN Reason Stop Dose Admin Sodium Chloride 1,000 mls @ 30 mls/hr 07/07/22 08:45 07/07/22 08:55 Sodium Chloride 0.9% IV 07/08/22 08:44 30 mls/hr .Q24H HIRA Administration PFSH Anesthesia Medical History AAA (abdominal aortic aneurysm) AAA (abdominal aortic aneurysm) CHF (congestive heart failure) Elevated PSA Essential hypertension Essential hypertension History of diabetic ulcer of foot History of pulmonary embolism Hx of type 2 diabetes mellitus Hypotension Lumbago Mixed hyperlipidemia Nicotine dependence Obesity Pulmonary embolism Smoking Syncope Type 2 diabetes mellitus without complication Surgical History H/O toe surgery Hx of toe surgery Family History Father CAD (coronary artery disease) Dementia Diabetes Mother Cancer Sister Cancer Denies family history of Clotting disorder Chronic kidney disease (CKD) Suicide Anesthesia complication Bleeding disorder Lung disease Stroke Social History Smoking and tobacco status: current every day smoker (1 pack ) cigarettes Packs smoked per day: 1 Years cigarettes smoked: 20 Second hand smoke exposure: Yes Smoking risk assessment/counseling performed?: No Alcohol intake: never Desire information about alcohol rehabilitation?: No Counseling given: No Marital status: Current occupational status: retired History of recent travel: No Data Anesthesia Cardiac Studies: Echocardiogram 04/19/22 Cardiac Event Monitor 06/15/21
--- NOTE | 2022-07-07 09:49 | W.PM.OPSUD ---
Surgery/Procedure H&P Update DATE OF PROCEDURE: July 07, 2022 DATE H&P PERFORMED: 06/27/22 PREOP DIAGNOSIS: Colon cancer screening PLANNED PROCEDURE: Operation Date: 07/07/22 10:00 Proposed Procedures p Colonoscopy 36788,Z12.11(Not Applicable) - Guanakito Frias DO
--- NOTE | 2022-07-07 10:17 | ANE.PACU2 ---
Inpatient post-anesthesia follow up: Airway intact: Yes Vital signs: Temperature 97.2 F Pulse Rate 84 Respiratory Rate 18 Blood Pressure 170/75 Pulse Oximetry 97 Oxygen Delivery Me thod Room Air Oxygen Flow Rate Fraction of Inspir ed Oxygen Hydration adequate: Yes Nausea and vomiting: No Pain level: 1 Mental status: Baseline
[2022-07-07 10:18] VITALS: BP 124/82; PULSE 56; RESP 16; O2SAT 97
[2022-07-07 10:27] VITALS: BP 153/72; PULSE 57; RESP 18; O2SAT 97
== END 2022-07-07 10:44 | disposition home or self-care (01) ==
PROVIDERS: PCP Family Medicine; Visit Provider Surgery
PROC: 0DJD8ZZ Inspection of Lower Intestinal Tract, Via Natural or Artificial Opening Endoscopic (ICD-10-PCS; CPT 45378; principal; 2022-07-07 10:00)
DX: Z12.11 Encounter for screening for malignant neoplasm of colon (principal); D12.5 Benign neoplasm of sigmoid colon; I10 Essential (primary) hypertension; E11.9 Type 2 diabetes mellitus without complications; E78.2 Mixed hyperlipidemia; E66.9 Obesity, unspecified; Z68.29 Body mass index [BMI] 29.0-29.9, adult; F17.210 Nicotine dependence, cigarettes, uncomplicated
CPT/HCPCS: 45385; 88305; J2704; J7030

== ENCOUNTER → 2023-03-15 14:34 | Outpatient (BNVA) | payer OTHER, SELFPAY | PROVIDERS: PCP Family Medicine; Referring Provider Family Medicine; Visit Provider Nurse Practitioner Family | DX: C86.6 Primary cutaneous CD30-positive T-cell proliferations (principal); L57.8 Other skin changes due to chronic exposure to nonionizing radiation; L57.0 Actinic keratosis; L81.4 Other melanin hyperpigmentation; D22.5 Melanocytic nevi of trunk; L85.3 Xerosis cutis; Z71.89 Other specified counseling; S50.912A Unspecified superficial injury of left forearm, initial encounter; S50.911A Unspecified superficial injury of right forearm, initial encounter; X58.XXXA Exposure to other specified factors, initial encounter; L30.0 Nummular dermatitis | CPT/HCPCS: 11102; 17004; 99204 ==

== ENCOUNTER → 2023-06-19 09:25 | Outpatient (BNVA) | payer OTHER, SELFPAY | PROVIDERS: PCP Family Medicine; Visit Provider Nurse Practitioner Family | DX: L57.8 Other skin changes due to chronic exposure to nonionizing radiation (principal); S50.912A Unspecified superficial injury of left forearm, initial encounter; S50.911A Unspecified superficial injury of right forearm, initial encounter; L57.0 Actinic keratosis; X58.XXXA Exposure to other specified factors, initial encounter | CPT/HCPCS: 17000; 17003; 99213 ==

== ENCOUNTER → 2023-10-19 07:58 | Outpatient (BNVA) | payer OTHER, SELFPAY | PROVIDERS: PCP Family Medicine; Visit Provider Nurse Practitioner Family | DX: L57.8 Other skin changes due to chronic exposure to nonionizing radiation (principal); L82.1 Other seborrheic keratosis; L81.4 Other melanin hyperpigmentation; D22.5 Melanocytic nevi of trunk | CPT/HCPCS: 17000; 99213 ==

== ENCOUNTER → 2024-03-25 08:21 | Outpatient (BNVA) | payer MEDICARE, MEDICAID, SELFPAY | PROVIDERS: PCP Family Medicine Adult Medicine; Visit Provider Family Medicine Adult Medicine | DX: I10 Essential (primary) hypertension (principal); R97.20 Elevated prostate specific antigen [PSA]; E78.2 Mixed hyperlipidemia; E11.42 Type 2 diabetes mellitus with diabetic polyneuropathy | CPT/HCPCS: 80053; 80061; 83036; 84443; 85025; G0103 ==